=== PATIENT | female | born 1960 | race Two or more races ===

== ENCOUNTER 2018-08-24 08:16 | Emergency (ER) | payer OTHER ==
[~2018-08-24] VITALS: Ht 157.5 cm; Wt 54.4 kg
[2018-08-24 08:27] VITALS: BP 143/100
--- NOTE | 2018-08-24 08:29 | Emergency Room Report ---
History of Present Illness General Chief Complaint: Medical Clearance Source: Patient Present Illness HPI Ms. Leblanc is pleasant female who presents with shortness of breath. Patient has hx of cocaine abuse, asthma and angina. Police came to residence for domestic dispute. Police officers discovered that she had arrest warrants for minor misdemeanors. Patient was calm and cooperative without distress or physical complaints. Once patient was placed in the squad car under arrest, she developed chest pain and shortness of breath. EMS was notified and transported patient to ED. Patient only complaint at this time is shortness of breath. Allergies: Coded Allergies: No Known Allergies (Unverified , 08/24/18) Patient History Reviewed Nursing Documentation: PMH: Agreed; PSxH: Agreed Nursing Documentation-PMH Past Medical History: No History, Except For Hx Cardiac Problems: Yes - Angina Hx Hypertension: Yes Hx Asthma: Yes Review of Systems Constitutional: Denies: fever, malaise Respiratory: Reports: shortness of breath Cardiovascular: Reports: chest pain Neurological: Denies: headache All Other Systems: negative except mentioned in HPI Physical Exam Vital Signs Date Time Temp Pulse Resp B/P (MAP) Pulse Ox O2 Delivery O2 Flow Rate FiO2 08/24/18 08:14 98.7 112 20 165/125 99 Room Air 98.8 Sp02 EP Interpretation: reviewed, normal General Appearance: no apparent distress, alert, GCS 15, non-toxic Head: normocephalic, atraumatic Eyes: bilateral eye normal inspection, bilateral eye PERRL ENT: hearing grossly normal, normal pharynx, no angioedema, normal voice Neck: full range of motion, supple/symm/no masses Respiratory: chest non-tender, lungs clear, normal breath sounds, speaking full sentences Cardiovascular #1: regular rate, rhythm, no edema Gastrointestinal: normal bowel sounds, non tender, soft, non-distended, no guarding, no rebound Rectal: deferred Genitourinary: normal inspection, no CVA tenderness Musculoskeletal: back normal, gait/station normal, normal range of motion, non- tender, calf tenderness Neurologic: alert, oriented x3, responsive, motor strength/tone normal, sensory intact, speech normal Psychiatric: judgement/insight normal, memory normal, mood/affect normal, no suicidal/homicidal ideation, other - upset "this is some bull----" Skin: normal color, no rash, warm/dry, well hydrated Medical Decision Making Diagnostic Impression: Primary Impression: Stress reaction, emotional ER Course Ms. Leblanc presents with anxiety/panic attack after being placed under arrest. I do not suspect ACS, PE or arrhythmia. No indication of asthma exacerbation. Given duonob to calm patient. After a brief observation, she states that she feels better. No pain or dyspnea. Last Vital Signs Date Time Temp Pulse Resp B/P (MAP) Pulse Ox O2 Delivery O2 Flow Rate FiO2 08/24/18 08:14 98.7 112 20 165/125 99 Room Air 98.8 Disposition: D/C TO LAW ENFORCEMENT IN [facility] Condition: Stable Pamela Covarrubias MD Aug 24, 2018 08:29
[2018-08-24] MEDS ORDERED: Albuterol/Ipratropium 3ml neb HHN ONE (08:30)
[2018-08-24 08:40] VITALS: BP 143/100
== END 2018-08-24 08:42 ==
LOC: EDBD 08:16 → EMR 08:25
DX: F43.9 Reaction to severe stress, unspecified (principal); I20.9 Angina pectoris, unspecified; I10 Essential (primary) hypertension; J45.909 Unspecified asthma, uncomplicated; F14.10 Cocaine abuse, uncomplicated
CPT/HCPCS: 94640; 94664; 99284; J7620